=== PATIENT | female | born 1985 | race Caucasian/White ===

== ENCOUNTER 2021-02-08 14:00 | Inpatient (IN) | payer OTHER ==
[2021-02-08] MEDS ORDERED: OXYTOCIN 30 UNITS in 0.9% NS 30 UNIT/500 ML INFUS.BAG IVPB SCH (14:30)
[2021-02-08 15:40] VITALS: BMI 32.4
[2021-02-08] MEDS ORDERED: OXYTOCIN 30 UNITS in 0.9% NS 30 UNIT/500 ML INFUS.BAG IVPB ONE (15:45)
[2021-02-08] MEDS: ELECTROLYTE-148 SOLN 1,000 ML IV SCH (16:00)
[2021-02-08 17:13] LABS: BASO % 0.2 % (0-2.0); EOS % 0.5 % (0-4.5); HEMATOCRIT 34.9 % (32.4-45.2); HEMOGLOBIN 12.2 GM/dL (10.7-15.3); LYMPH % 16.1 % (8-40); MCH 32.2 pg (25.7-33.7); MEAN CELL VOLUME 91.9 fl (80-96); MEAN PLT VOLUME 8.4 fl (7.5-11.1); MONO % 5.9 % (3.8-10.2); NEUT % 77.3 % (42.8-82.8); PLATELET COUNT 218 10^3/uL (134-434); RBC 3.79 M/mm3 (3.60-5.2); RDW 12.8 % (11.6-15.6); WHITE BLOOD COUNT 6.7 K/mm3 (4.0-10.0)
[2021-02-08 17:20] LABS: INR 0.91 (0.83-1.09); PROTHROMBIN TIME (PATIENT) 11.1 SEC (9.7-13.0)
[2021-02-08 17:23] LABS: ACTIVATED PTT 25.3 SECONDS (25.2-36.5)
[2021-02-08 17:31] LABS: CALCIUM 8.8 mg/dL (8.5-10.1)
[2021-02-08 17:32] LABS: BLOOD UREA NITROGEN 4.8 mg/dL (7-18)
[2021-02-08 17:35] LABS: CREATININE 0.5 mg/dL (0.55-1.3)
[2021-02-08] MEDS ORDERED: FENTANYL/BUPIVACAINE/NS/PF - PCEA - 50 ML DISP.SYRIN EP ONE (17:39)
[2021-02-08] MEDS: FENTANYL/BUPIVACAINE/NS/PF - PCEA - 50 ML DISP.SYRIN EP SCH (18:00)
[2021-02-08] MEDS ORDERED: NALOXONE HCL 0.4 MG/ML VIAL IVPUSH PRN (18:15)
[2021-02-08] MEDS ORDERED: OXYTOCIN 20 UNITS in 0.9% NS 20 UNIT/1,000 ML INFUS.BAG IV ONE (20:56)
[2021-02-08] MEDS: OXYTOCIN 20 UNITS in 0.9% NS 20 UNIT/1,000 ML INFUS.BAG IV SCH (21:15)
[2021-02-08] MEDS ORDERED: WITCH HAZEL 50% (TUCKS) 40 PAD/JAR PAD TP PRN (21:29)
[2021-02-08] MEDS ORDERED: MISOPROSTOL 200 MCG TABLET PV ONE (21:29)
[2021-02-08] MEDS ORDERED: BENZOCAINE 28 GM HEMORRHOIDAL OINTMENT TP PRN (21:29)
[2021-02-08] MEDS ORDERED: METHYLERGONOVINE MALEATE 0.2 MG/1 ML AMP IM PRN (21:29)
[2021-02-08] MEDS ORDERED: BISACODYL 10 MG SUPP.RECT RC PRN (21:29)
[2021-02-08] MEDS ORDERED: BENZOCAINE 20% 57 GM BOTTLE TP PRN (21:29)
[2021-02-09] MEDS: IBUPROFEN 600 MG TABLET (FP) PO PRN ×4 (00:13→17:23)
[2021-02-09] MEDS: ACETAMINOPHEN 325 MG TABLET (FP) PO PRN ×4 (00:14→17:22)
[2021-02-09] MEDS: FERROUS SO4 325 MG TABLET (FP) PO SCH ×3 (09:36→17:22)
[2021-02-09] MEDS: PRENATAL VITAMINS W/ FOLIC ACID TABLET (FP) PO SCH (09:37)
[2021-02-09] MEDS ORDERED: DIPHTH,PERTUSS(ACELL),TET 0.5 ML DISP.SYRIN IM ONE (10:00)
[2021-02-09 11:32] LABS: BASO % 0.2 % (0-2.0); EOS % 0.7 % (0-4.5); HEMATOCRIT 28.4 % (32.4-45.2); HEMOGLOBIN 10.1 GM/dL (10.7-15.3); LYMPH % 14.5 % (8-40); MCH 32.9 pg (25.7-33.7); MCHC 35.5 g/dl (32.0-36.0); MEAN CELL VOLUME 92.9 fl (80-96); MEAN PLT VOLUME 8.3 fl (7.5-11.1); MONO % 5.9 % (3.8-10.2); NEUT % 78.7 % (42.8-82.8); PLATELET COUNT 166 10^3/uL (134-434); RBC 3.06 M/mm3 (3.60-5.2); RDW 13.1 % (11.6-15.6); WHITE BLOOD COUNT 7.4 K/mm3 (4.0-10.0)
[2021-02-09] MEDS: FENTANYL/BUPIVACAINE/NS/PF - PCEA - 50 ML DISP.SYRIN EP SCH (21:51)
[2021-02-09] MEDS: ELECTROLYTE-148 SOLN 1,000 ML IV SCH (21:51)
[2021-02-09] MEDS: OXYTOCIN 20 UNITS in 0.9% NS 20 UNIT/1,000 ML INFUS.BAG IV SCH (21:52)
[2021-02-09] MEDS ORDERED: SENNOSIDES/DOCUSATE COMBO (SENNA PLUS) TABLET (UD) PO PRN (22:00)
[2021-02-10] MEDS: FERROUS SO4 325 MG TABLET (FP) PO SCH ×2 (08:24→12:00)
[2021-02-10 10:05] VITALS: BP 104/67; PULSE 77; TEMP 99.1
[2021-02-10] MEDS: PRENATAL VITAMINS W/ FOLIC ACID TABLET (FP) PO SCH (10:24)
== END 2021-02-10 12:20 | disposition home or self-care (01) | DRG 560 ==
LOC: JLDR 14:00 → J3W 02-09 00:11
PROVIDERS: ADMIT Obstetrics & Gynecology; ATTEND Obstetrics & Gynecology
PROC: 10E0XZZ Delivery of Products of Conception, External Approach (ICD-10-PCS; principal; 2021-02-08)
PROC: 0W8NXZZ Division of Female Perineum, External Approach (ICD-10-PCS; 2021-02-08)
PROC: 0KQM0ZZ Repair Perineum Muscle, Open Approach (ICD-10-PCS; 2021-02-08)
DX: O70.1 Second degree perineal laceration during delivery (principal); O71.89 Other specified obstetric trauma; Z3A.38 38 weeks gestation of pregnancy; Z37.0 Single live birth
CPT/HCPCS: 36415; 59409; 80048; 85025; 85610; 85730; 86780; 86850; 86900; 86901; 90715; C9803; U0003; U0005